=== PATIENT | male | born 1955 | race Caucasian/White ===

== ENCOUNTER → 2017-08-16 | Day surgery (SDC) | payer BC ==
[~2017-08-16] MED LIST: Benzocaine 20% Spray 60 ML CAN ONE
== END ==
LOC: ENDO/OP 10:21
PROVIDERS: ATTEND Surgery
DX: K44.9 Diaphragmatic hernia without obstruction or gangrene (principal); Z96.653 Presence of artificial knee joint, bilateral; Z90.89 Acquired absence of other organs; Z98.890 Other specified postprocedural states; Z87.442 Personal history of urinary calculi
CPT/HCPCS: 91010

== ENCOUNTER 2017-08-24 13:43 | Outpatient (CLI) | payer BC ==
[2017-08-24 15:50] LABS: Hematocrit 45.4 % (42.0-52.0); Mean Platelet Volume 6.9 fL (7.4-10.4); Neutrophil 68 % (42-75); Red Blood Cell (RBC) Count 4.66 mill/uL (4.70-6.10); White Blood Cell (WBC) Count 6.4 thou/uL (4.8-10.8)
[2017-08-24 16:05] LABS: ALT (SGPT) 28 U/L (8-55); AST (SGOT) 22 U/L (5-34); Alkaline Phosphatase 66 U/L (40-150); BUN (Urea Nitrogen) 9 mg/dL (8.4-25.7); Bilirubin, Total 0.5 mg/dL (0.2-1.2); Calc. Creatinine Clearance 0 mL/min (70-130); Carbon Dioxide 32 mmol/L (23-31); Estimated GFR-MDRD 79; Globulin 2.9 g/dL (2.4-3.5); Protein, Total 7.1 g/dL (5.8-8.1)
[2017-08-24 16:12] LABS: Anion Gap 11 mmol/L (10-20); Chloride 104 mmol/L (98-107)
--- NOTE | 2017-08-24 18:10 | EKG ---
Test Reason : Blood Pressure : / mmHG Vent. Rate : 069 BPM Atrial Rate : 069 BPM P-R Int : 136 ms QRS Dur : 088 ms QT Int : 394 ms P-R-T Axes : 050 004 -09 degrees QTc Int : 422 ms Normal sinus rhythm Moderate voltage criteria for LVH, may be normal variant Inferior infarct , age undetermined Abnormal ECG No previous ECGs available Confirmed by DR. Placido HARRISON ([id number]) on 08/24/2017 6:09:40 PM Referred By: GAGAN Confirmed By:DR. Placido HARRISON
== END 2017-08-24 13:44 | disposition home or self-care (01) ==
LOC: LABBT 13:43
PROVIDERS: ATTEND Surgery
DX: Z01.818 Encounter for other preprocedural examination (principal); K44.9 Diaphragmatic hernia without obstruction or gangrene; K21.9 Gastro-esophageal reflux disease without esophagitis
CPT/HCPCS: 80053; 85025; 93005; 93010

== ENCOUNTER 2017-08-26 08:12 | Inpatient (IN) | payer BC ==
[2017-08-24 14:12] VITALS: BMI 31.1
[2017-08-26] MEDS ORDERED: CEFAZOLIN/Water 2 GM/20 ML SYRINGE ONE (08:53)
[2017-08-26] MEDS ORDERED: Bupivacaine/Epinephrine 0.25% 30 ML VIAL ONE (10:14)
[2017-08-26] MEDS ORDERED: Midazolam HCl 2 mg/2 ml Vial ONE ×2 (11:10→11:12)
[2017-08-26] MEDS ORDERED: Fentanyl 100 MCG/2 ML VIAL ONE ×2 (11:11→11:12)
[2017-08-26] MEDS ORDERED: HYDROmorphone 0.5 MG/0.5 ML SYRINGE ONE ×4 (11:11→14:42)
[2017-08-26] MEDS ORDERED: Lidocaine 1% (PF) 30 ML VIAL ONE (11:11)
[2017-08-26] MEDS ORDERED: Dextrose 5% in Water 1,000 ML IV PRN (13:18)
[2017-08-26] MEDS ORDERED: Ondansetron HCl/PF 4 MG/2 ML Vial IVP PRN (13:18)
[2017-08-26] MEDS ORDERED: diphenhydrAMINE 50 MG/ML VIAL IVP PRN (13:18)
[2017-08-26] MEDS ORDERED: hydrALAZINE 20 MG/ML VIAL SLOW IVP PRN (13:18)
[2017-08-26] MEDS ORDERED: Hydrocodone-Acetamin 15 ML UDCUP PO PRN (13:18)
[2017-08-26] MEDS ORDERED: Promethazine HCl 25 MG/ML VIAL IM PRN (13:18)
[2017-08-26] MEDS ORDERED: Dextrose 50% Abboject 50 ML SYRINGE SLOW IVP PRN (13:18)
[2017-08-26] MEDS ORDERED: HYDROmorphone 10 mg/100 ml CADD IV PRN (13:41)
[2017-08-26] MEDS ORDERED: PHENYLEPHRINE-NS 100 MCG/ML 10 ML SYRINGE ONE (13:52)
[2017-08-26] MEDS ORDERED: Dexamethasone 20 MG/5 ML VIAL ONE (13:52)
[2017-08-26] MEDS ORDERED: Glycopyrrolate 0.2 MG/ML 5 ML SYRINGE ONE (13:52)
[2017-08-26] MEDS ORDERED: ePHEDrine/0.9% NaCl/PF SYRINGE 50 mg/10 ml ONE (13:52)
[2017-08-26] MEDS ORDERED: Lidocaine 1% PF 5 ML VIAL ONE (13:52)
[2017-08-26] MEDS ORDERED: Ondansetron HCl/PF 4 MG/2 ML Vial ONE (13:52)
[2017-08-26] MEDS ORDERED: Ketorolac Tromethamine 30 MG/ML VIAL ONE (13:52)
[2017-08-26] MEDS ORDERED: Propofol 200 MG/20 ML VIAL ONE (13:52)
[2017-08-26] MEDS ORDERED: CEFAZOLIN/Water 2 GM/20 ML SYRINGE SLOW IVP SCH (17:00)
--- NOTE | 2017-08-26 17:36 | OP ---
DATE OF SERVICE: 08/26/2017 PREOPERATIVE DIAGNOSIS: Hiatal hernia with reflux. SURGEON: Jimbo Bates M.D. PROCEDURE: Laparoscopic hiatal hernia repair and Alejandro fundoplication with esophagogastroduodenosco py. INDICATIONS: A 61-year-old male with a 20-year history of severe reflux that is no longer responsive to proton pump inhibitors, has a small hiatal hernia. FINDINGS: Small hiatal hernia. PROCEDURE IN DETAIL: After informed consent was obtained, the patient was taken to the operating chucho m and given general endotracheal anesthesia, placed in the supine position. His abdomen was prepped and draped in the usual fashion. Local anesthesia infiltrated subcutaneously and deep. A 5 mm incis ion was performed approximately 8 inches below the xiphoid slightly to the left. Veress needle inser anthony. Drop test performed. Pneumoperitoneum was created to a volume of 2 liters of carbon dioxide. Utilizing a bladeless 5 mm trocar and 0 degree laparoscope, direct visual entry in the abdominal cavi ty was performed. Pneumoperitoneum was then created to a pressure of 15 mmHg. The patient placed in steep reverse Trendelenburg position. [place] liver retractor inserted, left lobe of liver retrac anthony superiorly. A 5 mm port was placed just to the left of the falciform, an 8 mm port was placed le ft subcostal and another 5 mm port placed lower on the lateral left side. The gastrophrenic ligament was divided utilizing the LigaSure. The peritoneum opened anteriorly along the crura with utilizing the LigaSure. The left crura was defined with LigaSure and then the right crura was defined with th e LigaSure. The short gastrics were taken down utilizing the LigaSure and the posterior crural confl uence was dissected with the LigaSure. 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 This was all reduced including about 5 cm of the esophagus. Then, a 40-[place] bougi e was inserted under direct vision and a posterior crural plication was performed utilizing interrupt ed 0 Ethibonds with the Sew-Right and tie-knot device. Then, the fundus was grasped and brought to t he right side of the esophagus and sutured to itself including the esophagus with interrupted 2-0 magan k sutures tied intracorporeally. Again, this was done over the 40-[place] bougie. Then, the bougie w as removed and intraoperative endoscopy was performed. The video endoscope inserted under direct vis ion and advanced into the stomach. The stomach insufflated with air and the scope retroflexed. The wrap looked good. There was no bleeding or paraesophageal component. The scope was advanced through the pylorus into the duodenum, no problems. The stomach decompressed. The scope removed. At this point, hemostasis was assured. Trocars and retractors removed. The skin closed with interrupted 4-0 Rapide. Dermabond applied. The patient tolerated the procedure well and was transferred to [facility] in good condition. Sponge and needle count verified correct x2.
[2017-08-26] MEDS: Ketorolac Tromethamine 30 MG/ML VIAL IVP SCH (17:37)
[2017-08-26] MEDS: D5 1/2 NS w/20 mEq KCL 1,000 ML IV SCH ×2 (17:37→20:53)
[2017-08-26] MEDS: Acetaminophen 1,000 MG in Premix Bag 1 BAG IVPB SCH (17:38)
[2017-08-26] MEDS ORDERED: Ketorolac Tromethamine 30 MG/ML VIAL IVP SCH (18:00)
[2017-08-26] MEDS: CEFAZOLIN/Water 2 GM/20 ML SYRINGE SLOW IVP SCH (20:46)
[2017-08-27] MEDS: Acetaminophen 1,000 MG in Premix Bag 1 BAG IVPB SCH ×2 (00:17→06:30)
[2017-08-27] MEDS: Ketorolac Tromethamine 30 MG/ML VIAL IVP SCH ×2 (00:18→06:30)
[2017-08-27] MEDS: CEFAZOLIN/Water 2 GM/20 ML SYRINGE SLOW IVP SCH (03:47)
[2017-08-27 05:42] LABS: #Lymphocytes 1.2 thou/uL (1.20-3.40); #Monocytes 0.6 thou/uL (0.11-0.59); #Neutrophils 6.9 thou/uL (1.40-6.50); %Basophils 0.1 % (0.0-1.0); %Eosinophils 0.1 % (0.0-10.0); %Lymphocytes 13.8 % (21.0-51.0); %Monocytes 7.1 % (0.0-10.0); %Neutrophils 78.8 % (42.0-75.0); Hemoglobin 13.2 g/dL (14.0-18.0); Mean Corpuscular HGB CONC 33.4 g/dL (32.0-36.0); Mean Corpuscular Hemoglobin 32.8 pg (27.0-31.0); Platelet Count 212 thou/uL (130-400); RBC Distribution Width 12.1 % (11.5-14.5); Red Blood Cell (RBC) Count 4.02 mill/uL (4.70-6.10); White Blood Cell (WBC) Count 8.7 thou/uL (4.8-10.8)
[2017-08-27 06:09] LABS: Anion Gap 10 mmol/L (10-20); BUN (Urea Nitrogen) 13 mg/dL (8.4-25.7); Calc. Creatinine Clearance 111 mL/min (70-130); Calcium 8.4 mg/dL (7.8-10.44); Carbon Dioxide 26 mmol/L (23-31); Chloride 104 mmol/L (98-107); Estimated GFR-MDRD 84; Glucose 147 mg/dL (80-115); Potassium 4.3 mmol/L (3.5-5.1); Sodium 136 mmol/L (136-145)
[2017-08-27] MEDS: D5 1/2 NS w/20 mEq KCL 1,000 ML IV SCH (06:28)
[2017-08-27] MEDS ORDERED: Enoxaparin Sodium 40 MG/0.4 ML SYRINGE SC SCH (09:00)
[2017-08-27] MEDS ORDERED: Pantoprazole 40 MG VIAL IVP SCH (09:00)
[2017-08-27 09:03] VITALS: BP 149/90; TEMP 97.9
--- NOTE | 2017-08-27 10:10 | RAD ---
SINGLE CONTRAST LIMITED UPPER GI WITH 15 ML OF GASTROGRAFIN: HISTORY: Recent fundoplication for gastroesophageal reflux disease. FINDINGS: There was prompt passage of the ingested 15 mL of Gastrografin, under fluoroscopy, from the esophagus into the stomach. No contrast extravasation is seen. IMPRESSION: No evidence of obstruction or leak. POS: [facility]
--- NOTE | 2017-08-27 14:17 | DIS ---
DATE OF ADMISSION: 08/26/2017 DATE OF DISCHARGE: 08/27/2017 DISCHARGE DIAGNOSIS: Hiatal hernia with severe gastroesophageal reflux. PROCEDURES DURING ADMISSION: Laparoscopic hiatal hernia repair with Alejandro fundoplication, intraoper ative esophagogastroscopy, postoperative Gastrografin swallow. HOSPITAL COURSE: The patient was admitted, taken to the operating room where he underwent a hiatal h ernia repair with Alejandro. He had an intraoperative esophagogastroscopy, which was fine. Postoperati vely, he has done well. His x-ray was fine. He was started on liquids. He is tolerating well. He is discharged home in good condition on hydrocodone and Zofran. He will follow up with me in 2 weeks .
[2017-08-27] MEDS ORDERED: GASTROGRAFIN 30 ML BOT ONE (16:58)
== END 2017-08-27 13:04 | disposition home or self-care (01) | DRG 328 ==
LOC: SDC 08:12 → SURG A 15:25
PROVIDERS: ADMIT Surgery; ATTEND Surgery
PROC: 0DV48ZZ Restriction of Esophagogastric Junction, Via Natural or Artificial Opening Endoscopic (ICD-10-PCS; principal; 2017-08-26)
PROC: 0BQT4ZZ Repair Diaphragm, Percutaneous Endoscopic Approach (ICD-10-PCS; 2017-08-26)
DX: K44.9 Diaphragmatic hernia without obstruction or gangrene (principal); K21.9 Gastro-esophageal reflux disease without esophagitis
CPT/HCPCS: 36415; 74241; 80048; 85025; C9113; J0131; J1100; J1170; J1650; J1885; J2001; J2250; J2405; J2704; J3010

== ENCOUNTER 2022-11-05 07:44 | Day surgery (SDC) | payer MEDICARE, BC ==
[2022-11-04 11:04] VITALS: BMI 33.4
[~2022-11-05 07:44] MED LIST changes: -Benzocaine 20% Spray 60 ML CAN ONE; +Fluorouracil 100 MG, Enoxaparin 25 MG, EPINEPHrine 0.3 MG in Ophthalmic Irrigation Solu... IRR SCH; +Midazolam HCl 2 mg/2 ml Vial ONE; +fentaNYL PF 100 MCG/2 ML SYRINGE ONE
[2022-11-05] MEDS ORDERED: Cyclopentolate 1% Opth Drop 2 ML BOT ONE (08:04)
[2022-11-05] MEDS ORDERED: Phenylephrine 2.5% Ophth Soln 5 ML BOT ONE (08:04)
[2022-11-05] MEDS ORDERED: CEFAZOLIN 1 GM VIAL ONE (09:54)
[2022-11-05] MEDS ORDERED: Bupivacaine 0.75% 10 ML VIAL ONE (09:54)
[2022-11-05] MEDS ORDERED: Maxitrol 0.1% Opth Oint 3.5 GM TUBE ONE (09:54)
[2022-11-05] MEDS ORDERED: Lidocaine 1% PF 5 ML VIAL ONE (09:54)
[2022-11-05] MEDS ORDERED: Triamcinolone 40 MG/ML VIAL ONE (09:54)
[2022-11-05] MEDS ORDERED: Lidocaine 4% PF 5 ML AMP ONE (09:54)
[2022-11-05] MEDS ORDERED: Indocyanine Green 25 MG/10 ML VIAL ONE (09:54)
[2022-11-05] MEDS ORDERED: PROPOFOL 200 MG/20 ML VIAL ONE (09:54)
== END 2022-11-05 11:23 | disposition home or self-care (01) ==
LOC: SDC 07:44
PROVIDERS: ATTEND Ophthalmology Retina Specialist
PROC: 08T43ZZ Resection of Right Vitreous, Percutaneous Approach (ICD-10-PCS; principal; 2022-11-05)
PROC: 08NE3ZZ Release Right Retina, Percutaneous Approach (ICD-10-PCS; 2022-11-05)
DX: H35.341 Macular cyst, hole, or pseudohole, right eye (principal); Z79.899 Other long term (current) drug therapy
CPT/HCPCS: 67025; J0171; J0690; J1650; J2250; J2704; J3301; J3490; J9190

== ENCOUNTER 2024-04-20 05:49 | Day surgery (SDC) | payer MEDICARE ==
[2024-04-19 10:13] VITALS: BMI 31.9
[~2024-04-20 05:49] MED LIST changes: +EPINEPHrine 0.3 MG in Ophthalmic Irrigation Solution 500 ML IRR SCH; -Fluorouracil 100 MG, Enoxaparin 25 MG, EPINEPHrine 0.3 MG in Ophthalmic Irrigation Solu... IRR SCH; -Midazolam HCl 2 mg/2 ml Vial ONE; -fentaNYL PF 100 MCG/2 ML SYRINGE ONE
[2024-04-20] MEDS ORDERED: PHENYLephrine 2.5% Ophth Soln 15 ml Bottle ONE (06:04)
[2024-04-20] MEDS ORDERED: Cyclopentolate 1% Opth Drop 2 ML BOT ONE (06:04)
[2024-04-20] MEDS ORDERED: PROPOFOL 20 ML ONE (06:52)
[2024-04-20] MEDS ORDERED: fentaNYL PF 100 MCG/2 ML SYRINGE ONE (06:52)
[2024-04-20] MEDS ORDERED: Midazolam HCl 2 mg/2 ml Vial ONE (06:53)
[2024-04-20] MEDS ORDERED: Lidocaine 1% PF 5 ML VIAL ONE (07:04)
[2024-04-20] MEDS ORDERED: Lidocaine 4% PF 5 ML AMP ONE (07:04)
[2024-04-20] MEDS ORDERED: Bupivacaine 0.75% 10 ML VIAL ONE (07:04)
[2024-04-20] MEDS ORDERED: Dexamethasone 4 mg/ml Vial ONE ×2 (07:04→07:26)
[2024-04-20] MEDS ORDERED: Maxitrol 0.1% Opth Oint 3.5 GM TUBE ONE (07:04)
[2024-04-20] MEDS ORDERED: CEFAZOLIN 1 GM VIAL ONE (07:04)
== END 2024-04-20 08:21 | disposition home or self-care (01) ==
LOC: SDC 05:49
PROVIDERS: ATTEND Ophthalmology Retina Specialist
PROC: 08T53ZZ Resection of Left Vitreous, Percutaneous Approach (ICD-10-PCS; principal; 2024-04-20)
DX: H43.312 Vitreous membranes and strands, left eye (principal)
CPT/HCPCS: 67041; J0171; J0690; J1100; J2250; J2704; J3490